=== PATIENT | female | born 1980 | race Caucasian/White ===

== ENCOUNTER 2016-06-17 17:30 | Emergency (ER) | payer BC, OTHER ==
[~2016-06-17] VITALS: Ht 160 cm; Wt 80.1 kg
[~2016-06-17 17:30] MED LIST: AMT50 PO
[2016-06-17 17:40] VITALS: TEMP 36.9; Ht 160 cm; Wt 80.1 kg
[2016-06-17] MEDS ORDERED: BCPILLS PO (17:49)
[2016-06-17] MEDS ORDERED: IBUP-1450 PO (17:50)
[2016-06-17] MEDS ORDERED: NAPR1TAB9 PO (17:50)
[2016-06-17] MEDS ORDERED: DiphenhydrAMINE HCL 50 MG/ML VIAL IV STA (17:57)
[2016-06-17] MEDS ORDERED: SODIUM CHLORIDE 0.9% 1000ML 1,000 ML IV STA (17:57)
[2016-06-17] MEDS ORDERED: KETOROLAC TROMETHAMINE 30 MG/ML VIAL IV STA (17:57)
[2016-06-17] MEDS ORDERED: PROCHLORPERAZINE 5 MG/ML 2 ML VIAL IV STA (17:57)
[2016-06-17 18:15] VITALS: O2SAT 100
--- NOTE | 2016-06-17 18:30 | DIAGNOSTIC IMAGING REPORT ---
CHEST ONE VIEW PORTABLE CLINICAL HISTORY: Pt c/o SOB dyspnea COMPARISON STUDY: No previous studies for comparison. FINDINGS: The bones soft tissues and hemidiaphragms are normal. The cardiomediastinal silhouette is normal. The lungs are clear. The pulmonary vasculature is normal. IMPRESSION: Negative chest. Electronically signed by: Tim Oneill M.D. 06/17/2016 6:29 PM Dictated Date/Time: 06/17/2016 6:29 PM
[2016-06-17 18:32] LABS: BASO % 0.3 %; BASO ABS # 0.03 K/uL (0-0.2); COMPLETE YES; IG% 0.1 %; LYMPH % 33.1 %; LYMPH ABS # 2.91 K/uL (1.2-3.4); MEAN CELL VOLUME 89.1 fL (80-100); MEAN CORPUSCULAR HEMOGLOBIN 30.2 pg (25-34); MEAN CORPUSCULAR HGB CONC 33.9 g/dl (32-36); MEAN PLATELET VOLUME 10.6 fL (7.4-10.4); MONO % 5.5 %; PLATELET COUNT 214 K/uL (130-400); WHITE BLOOD COUNT 8.79 K/uL (4.8-10.8)
[2016-06-17 18:52] LABS: ALT/SGPT 24 U/L (12-78); AST/SGOT 11 U/L (15-37); BLOOD UREA NITROGEN 15 mg/dl (7-18); BUN/CREATININE RATIO 21.7 (10-20); CALCIUM 8.5 mg/dl (8.5-10.1); CARBON DIOXIDE 26 mmol/L (21-32); CHLORIDE 107 mmol/L (98-107); CREATININE 0.69 mg/dl (0.60-1.20); GLUCOSE 99 mg/dl (70-99); POTASSIUM 3.7 mmol/L (3.5-5.1); SODIUM 141 mmol/L (136-145)
[2016-06-17 18:54] LABS: URINE APPEARANCE CLEAR (CLEAR); URINE BILIRUBIN NEG (NEG); URINE COLOR YELLOW; URINE NITRITE NEG (NEG); URINE PH 7.5 (4.5-7.5); URINE SPECIFIC GRAVITY 1.032 (1.000-1.030); UROBILINOGEN NEG (NEG)
[2016-06-17 18:55] LABS: ALKALINE PHOSPHATASE 43 U/L (45-117)
[2016-06-17 18:56] LABS: MANUAL MICROSCOPIC REQUIRED? NO; REVIEW REQ? NO
--- NOTE | 2016-06-17 19:37 | EMERGENCY ROOM VISIT NOTE ---
History First contact with patient: 17:47 Chief Complaint: FLU LIKE SX Stated Complaint: FLU LIKE SX, COULD BE MENINGITIS History of Present Illness The patient is a 36 year old female who presents to the Emergency Room with complaints of back pain. The patient is concerned that she has meningitis as a coworker tested positive for viral meningitis were she works however the patient denies severe headache or neck pain. In addition the patient has not taken anything for the pain. Patient reports she does have chronic back pain and this feels like her normal chronic back pain. Review of Systems See HPI for pertinent positives & negatives. A total of 10 systems reviewed and were otherwise negative. Social History Smoking Status: Current Every Day Smoker Alcohol Use: none Marital Status: Occupation Status: employed Current/Historical Medications Scheduled Control Pills ( Control Pills), 1 TAB PO DAILY Naproxen (Aleve), 220 MG PO UD Scheduled PRN Ibuprofen (Motrin), 600 MG PO Q6H PRN for Pain Allergies Coded Allergies: No Known Allergies (Unverified , 06/17/16) Physical Exam Vital Signs Date Time Temp Pulse Resp B/P Pulse Ox O2 Delivery O2 Flow Rate FiO2 06/17/16 19:07 67 06/17/16 18:15 100 Room Air 06/17/16 17:40 36.9 91 18 140/95 100 Room Air Physical Exam GENERAL: Patient is a healthy-appearing well-nourished female, no evidence of meningitis or encephalitis on exam HEAD: Normocephalic atraumatic EYES: Ocular movements intact pupils equal and react to light OROPHARYNX mucous membranes are moist no exudates present no erythema or edema present NECK: Supple no nuchal rigidity CHEST: Good equal expansion LUNGS: Clear and equal to auscultation CARDIAC: Normal S1 and S2 ABDOMEN: Soft nontender no guarding BACK: No CVA tenderness EXTREMITIES: No pain upon palpation normal muscle strength in all groups no clubbing cyanosis or edema NEURO: Patient is following commands is answering questions appropriately. Alert and oriented x3 Cranial Nerves 2-12 grossly intact Medical Decision & Procedures ER Provider Diagnostic Interpretation: CHEST ONE VIEW PORTABLE CLINICAL HISTORY: Pt c/o SOB dyspnea COMPARISON STUDY: No previous studies for comparison. FINDINGS: The bones soft tissues and hemidiaphragms are normal. The cardiomediastinal silhouette is normal. The lungs are clear. The pulmonary vasculature is normal. IMPRESSION: Negative chest. Electronically signed by: Tim Oneill M.D. 06/17/2016 6:29 PM Dictated Date/Time: 06/17/2016 6:29 PM Laboratory Results 06/17/16 18:20 Red Blood Count 4.60, Mean Corpuscular Volume 89.1, Mean Corpuscular Hemoglobin 30.2, Mean Corpuscular Hemoglobin Concent 33.9, Mean Platelet Volume 10.6, Neutrophils (%) (Auto) 59.0, Lymphocytes (%) (Auto) 33.1, Monocytes (%) (Auto) 5.5, Eosinophils (%) (Auto) 2.0, Basophils (%) (Auto) 0.3, Neutrophils # (Auto) 5.18, Lymphocytes # (Auto) 2.91, Monocytes # (Auto) 0.48, Eosinophils # (Auto) 0.18, Basophils # (Auto) 0.03 06/17/16 18:20 Test 06/17/16 18:11 06/17/16 18:20 Urine Color YELLOW Urine Appearance CLEAR (CLEAR) Urine pH 7.5 (4.5-7.5) Urine Specific [place] 1.032 (1.000-1.030) Urine Protein NEG (NEG) Urine Glucose (UA) NEG (NEG) Urine Ketones NEG (NEG) Urine Occult Blood NEG (NEG) Urine Nitrite NEG (NEG) Urine Bilirubin NEG (NEG) Urine Urobilinogen NEG (NEG) Urine Leukocyte Esterase NEG (NEG) White Blood Count 8.79 K/uL (4.8-10.8) Red Blood Count 4.60 M/uL (4.2-5.4) Hemoglobin 13.9 g/dL (12.0-16.0) Hematocrit 41.0 % (37-47) Mean Corpuscular Volume 89.1 fL (80-100) Mean Corpuscular Hemoglobin 30.2 pg (25-34) Mean Corpuscular Hemoglobin Concent 33.9 g/dl (32-36) Platelet Count 214 K/uL (130-400) Mean Platelet Volume 10.6 fL (7.4-10.4) Neutrophils (%) (Auto) 59.0 % Lymphocytes (%) (Auto) 33.1 % Monocytes (%) (Auto) 5.5 % Eosinophils (%) (Auto) 2.0 % Basophils (%) (Auto) 0.3 % Neutrophils # (Auto) 5.18 K/uL (1.4-6.5) Lymphocytes # (Auto) 2.91 K/uL (1.2-3.4) Monocytes # (Auto) 0.48 K/uL (0.11-0.59) Eosinophils # (Auto) 0.18 K/uL (0-0.5) Basophils # (Auto) 0.03 K/uL (0-0.2) RDW Standard Deviation 45.5 fL (36.4-46.3) RDW Coefficient of Variation 13.9 % (11.5-14.5) Immature Granulocyte % (Auto) 0.1 % Immature Granulocyte # (Auto) 0.01 K/uL (0.00-0.02) Anion Gap 8.0 mmol/L (3-11) Est Creatinine Clear Calc Drug Dose 112.9 ml/min Estimated GFR () 129.8 Estimated GFR (Non- 112.0 BUN/Creatinine Ratio 21.7 (10-20) Calcium Level 8.5 mg/dl (8.5-10.1) Total Bilirubin 0.3 mg/dl (0.2-1) Direct Bilirubin < 0.1 mg/dl (0-0.2) Aspartate Amino Transf (AST/SGOT) 11 U/L (15-37) Alanine Aminotransferase (ALT/SGPT) 24 U/L (12-78) Alkaline Phosphatase 43 U/L (45-117) Total Protein 7.0 gm/dl (6.4-8.2) Albumin 3.7 gm/dl (3.4-5.0) Influenza Type A Antigen Neg for Influ A (NEG) Influenza Type B Antigen Neg for Influ B (NEG) Medications Administered Medications (Trade) Dose Ordered Sig/Stacey Route Start Time Stop Time Status Last Admin Dose Admin Sodium Chloride (Nss 1000ml) 1,000 ml @ 999 mls/hr Q1H1M STAT IV 06/17/16 17:57 06/17/16 18:57 DC 06/17/16 18:32 999 MLS/HR Prochlorperazine Edisylate (Compazine Inj) 5 mg NOW STAT IV 06/17/16 17:57 06/17/16 17:59 DC 06/17/16 18:28 5 MG Ketorolac Tromethamine (Toradol Inj) 30 mg NOW STAT IV 06/17/16 17:57 06/17/16 17:59 DC 06/17/16 18:30 30 MG Diphenhydramine HCl (Benadryl Inj) 50 mg NOW STAT IV 06/17/16 17:57 06/17/16 18:00 DC 06/17/16 18:28 50 MG Medical Decision This is a 36-year-old female who presents emergency department over concerns that she has meningitis. The patient is able to move her head in all directions and has no neck pain in addition she is complaining of a headache but describes it as a slight headache and has not even comparable to her migraines. Based on these findings and using shared medical decision-making the decision was made not to do a lumbar puncture on this patient. I feel that the patient most likely does not have meningitis. In addition she has a normal CBC normal renal profile normal liver profile. Her flu swab is negative. An IV was established, the patient given normal saline bolus, Toradol,compazine, Benadryl. Repeat examination revealed improvement patient's symptoms. I do believe that the patient is well enough to be discharged home for follow-up with her primary care physician. Patient was in agreement with the treatment plan. Impression Primary Impression: Influenza-like symptoms Departure Information Dispostion Home / Self-Care Condition GOOD Referrals No Doctor, Assigned (PCP) Forms HOME CARE DOCUMENTATION FORM, School Instructions, Work Instructions, IMPORTANT VISIT INFORMATION Patient Instructions My [facility], ED Fever Unconf Cause, ED Fever Control Additional Instructions Take 600 mg Ibuprofen every 6 hours Take 1000 mg Tylenol every 6 hours You have been examined and treated today on an emergency basis only. This is not a substitute for, or an effort to provide, complete comprehensive medical care. It is impossible to recognize and treat all injuries or illnesses in a single emergency department visit. It is therefore important that you follow up closely with your PCP. Call as soon as possible for an appointment. Thank you for your time and consideration. I look forward to speaking with you again soon. Please don't hesitate to call us if you have any questions.
[2016-06-17 19:46] VITALS: BP 104/62; PULSE 74; O2SAT 98
[2016-06-17 22:52] LABS: INFLUENZA A PCR Neg for Influ A (NEG); INFLUENZA B PCR Neg for Influ B (NEG)
== END 2016-06-17 19:46 | disposition home or self-care (01) ==
LOC: C.EDB 17:31 → C.EDA 19:46
DX: M54.9 Dorsalgia, unspecified (principal); R51 Headache; G89.29 Other chronic pain; F17.210 Nicotine dependence, cigarettes, uncomplicated; Z79.3 Long term (current) use of hormonal contraceptives

== ENCOUNTER 2016-11-29 21:08 | Emergency (ER) | payer SELFPAY ==
[~2016-11-29] VITALS: Ht 162.6 cm; Wt 80.5 kg
[~2016-11-29 21:08] MED LIST changes: -AMT50 PO; +BCPILLS PO; +IBUP-1450 PO; +NAPR1TAB9 PO
[2016-11-29 21:16] VITALS: BP 143/82; PULSE 75; TEMP 36.6; O2SAT 98; Ht 162.6 cm; Wt 80.5 kg
--- NOTE | 2016-11-29 21:44 | DIAGNOSTIC IMAGING REPORT ---
RIGHT SHOULDER MIN 2 VIEWS ROUTINE CLINICAL HISTORY: Right shoulder pain COMPARISON: None. DISCUSSION: No fractures or dislocations are visualized. There are no visible periarticular calcifications. IMPRESSION: Unremarkable conventional radiographic evaluation of the right shoulder. Electronically signed by: Sumeet Chopra M.D. 11/29/2016 9:43 PM Dictated Date/Time: 11/29/2016 9:42 PM
[2016-11-29] MEDS ORDERED: OXYCODONE IR HOME PACK PO ONE (22:00)
--- NOTE | 2016-12-01 14:21 | EMERGENCY ROOM VISIT NOTE ---
ED Visit Note First contact with patient: 21:19 CHIEF COMPLAINT: Shoulder pain HISTORY OF PRESENT ILLNESS: This 36 year old female patient presents to the emergency department complaining of pain in the right shoulder after stumbling and catching herself 2 days ago. There is no significant limitation of motion of the arm because of the pain. The pain is moderate, constant and increases with motion of the hand and arm. The patient states the pain is dull and 7/10. The patient has taken Advil without significant relief of the pain. No previous significant previous shoulder disease or injury. No numbness or tingling. No neck and no back pain. No chest pain or shortness of breath. No abdominal pain or nausea/vomiting. No cough. REVIEW OF SYSTEMS: A 6 system review of systems was performed with positives and pertinent negatives in the HPI. ALLERGIES: No known allergies MEDICATIONS: No chronic medications PMH: Otherwise healthy SOCIAL HISTORY: Lives locally PHYSICAL EXAM: Vital Signs: Reviewed nurse's notes, vital signs stable. GENERAL : White female, in no acute distress, but appears to be in pain, well-developed , well-nourished. MUSCULOSKELETAL: There is no deformity in the contour of the right shoulder and there are no joie deformities noted. There is no sulcus sign. There is tenderness over the scapular ridge. The patient's range of motion is not significantly limited. Supraspinatus strength 5/5. There is no clavicle tenderness. No tenderness of the humerus, elbow, wrist, or hand. Transplant Nurse Practitioner strength 5/5. Radial pulse 2+. NECK: No tenderness to palpation over the cervical spine. HEART: Regular rate and rhythm without murmurs gallops or rubs. LUNGS: Clear to auscultation bilaterally without wheezes, rales or rhonchi. No accessory muscle use. No retractions. NEURO: The patient is alert and oriented to person, place, and time. Normal sensation to light and sharp touch. Capillary refill less than 2 seconds. RIGHT SHOULDER MIN 2 VIEWS ROUTINE CLINICAL HISTORY: Right shoulder pain COMPARISON: None. DISCUSSION: No fractures or dislocations are visualized. There are no visible periarticular calcifications. IMPRESSION: Unremarkable conventional radiographic evaluation of the right shoulder. EMERGENCY DEPARTMENT COURSE: Physical exam and history were performed. Nursing notes and EMR were reviewed. The patient appears to have injured her right shoulder a few days ago. X-ray was obtained and does not show evidence of acute bony injury. The patient was placed in an arm sling and will be given a home pack of oxycodone for pain control. I will give her information to follow up with orthopedics for ongoing care. She was otherwise invited back to the ER with any new, worsening, or concerning symptoms. Current/Historical Medications Scheduled PRN Ibuprofen (Motrin), 600 MG PO Q6H PRN for Pain Allergies Coded Allergies: No Known Allergies (Unverified , 11/29/16) Vital Signs Date Time Temp Pulse Resp B/P (MAP) Pulse Ox O2 Delivery O2 Flow Rate FiO2 11/29/16 21:16 36.6 75 18 143/82 98 Room Air Medications Administered Medications (Trade) Dose Ordered Sig/Stacey Route Start Time Stop Time Status Last Admin Dose Admin Oxycodone HCl (Roxicodone Immediate Rel 5MG Home Pack) 1 homepack UD ONCE PO 11/29/16 22:00 11/29/16 22:01 DC 11/29/16 22:00 1 HOMEPACK Departure Information Impression Primary Impression: Injury of right shoulder Dispostion Home / Self-Care Condition GOOD Referrals Frank Anand D.O. Forms HOME CARE DOCUMENTATION FORM, IMPORTANT VISIT INFORMATION Patient Instructions My [facility] Additional Instructions You were seen and evaluated today on an emergency basis only. This is not a substitute for, or an effort to provide, complete comprehensive medical care. It is not possible to recognize and treat all injuries or illnesses in a single emergency department visit. For this reason it is recommended that you followup with your primary care physician or with orthopedics, Dr. Anand's office, if symptoms persist over the next week. Wear your arm sling for comfort. For baseline pain relief you may alternate ibuprofen and acetaminophen every 4 hours for pain control. Take 600 mg ibuprofen (Advil) and then 4 hours later take 1000 mg acetaminophen (Tylenol). Do not take more than 3000 mg acetaminophen in a single day. Oxycodone (OxyIR) 5mg (homepack): Take ONE pill every SIX hours for breakthrough pain. Avoid alcohol, operating machinery or dangerous equipment, working on ladders or roofs, DRIVING, or situations where being under the influence may be dangerous. It is recommended to use an [id number] stool softener such as Colace, 100mg twice daily while taking this medication to avoid constipation. You are welcome to return to the emergency department anytime with new, worsening, or concerning symptoms.
== END 2016-11-29 22:01 | disposition home or self-care (01) ==
LOC: C.EDB 21:09 → C.EDD 22:01
DX: S49.91XA Unspecified injury of right shoulder and upper arm, initial encounter (principal); W18.40XA Slipping, tripping and stumbling without falling, unspecified, initial encounter

== ENCOUNTER 2016-12-10 18:59 | Emergency (ER) | payer OTHER ==
[~2016-12-10] VITALS: Ht 162.6 cm; Wt 78.2 kg
[~2016-12-10 18:59] MED LIST changes: -BCPILLS PO; -NAPR1TAB9 PO
[2016-12-10 19:05] VITALS: TEMP 36.9; Ht 162.6 cm; Wt 78.2 kg
[2016-12-10] MEDS ORDERED: IBUP-103 PO (19:19)
[2016-12-10] MEDS ORDERED: CYCL5TAB PO (19:45)
[2016-12-10] MEDS ORDERED: OXYC1TAB3 PO (19:45)
[2016-12-10] MEDS ORDERED: OXYCODONE IR HOME PACK PO STA (19:46)
[2016-12-10] MEDS ORDERED: FLEXERIL HOME PACK 10 MG VIAL PO STA (19:46)
--- NOTE | 2016-12-10 19:46 | EMERGENCY ROOM VISIT NOTE ---
ED Visit Note First contact with patient: 19:37 CHIEF COMPLAINT: Low back pain HISTORY OF PRESENT ILLNESS: This 36-year-old female patient presents to the emergency department via private vehicle complaining of pain in the low back which began when she got out of bed today. 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 The pain was gradual in onset, is now constant and worse with movement. The patient notes the pain as dull and a 8/10. The patient denies any loss of control of their bowel or bladder functions. There has been no leg numbness or weakness, and no change in sensation. No nausea or vomiting or abdominal pain. No chest pain or shortness of breath. She denies any chance of . There are no urinary symptoms. REVIEW OF SYSTEMS: A review of systems was performed with positives and pertinent negatives listed in the history of present illness. All other systems were reviewed and are negative. ALLERGIES: None MEDICATIONS: As noted below PMH: No pertinent identified. SOCIAL HISTORY: Patient lives and works locally. PHYSICAL EXAM: VITALS: Vitals are noted on the nurse's note and reviewed by myself. Vital signs stable. GENERAL: 36-year-old female, in no acute distress, nondiaphoretic, well- developed well-nourished. SKIN: The skin was without rashes, erythema, edema, or bruising. NECK: No cervical spine tenderness. No paraspinous muscle tenderness. HEART: Regular rate and rhythm without murmurs gallops or rubs. LUNGS: Clear to auscultation bilaterally without wheezes, rales or rhonchi. ABDOMEN: Soft, nontender, without masses or organomegaly. MUSCULOSKELETAL: No muscle atrophy, erythema, or edema noted of the back. There is tenderness over the paraspinous musculature of the lumbar spine as well as inferior thoracic spine. Minimal to no spinous processes tenderness. The patient is slow to move around with maximum tenderness with palpation of the right paraspinous musculature of the lumbar spine. NEURO: Normal sensation to light and sharp touch. Deep tendon reflexes 2+ in the lower extremities. Strength 5/5 and equal in the bilateral lower extremities. EMERGENCY DEPARTMENT COURSE: Patient was seen and evaluated as above. Examination is consistent with that of a lumbar strain. No evidence of abdominal etiology. No evidence of urinary symptoms. No evidence of cauda equina syndrome. She is afebrile. She'll be treated conservatively for a lumbar strain. She will be given Flexeril as well as oxycodone immediate release. She is to follow with her family doctor that she notes that she will obtain. She is to return with worsening. She was educated upon management, educated upon worrisome symptoms in which to return, had questions upon discharge, and was discharged home in good condition. In evaluation treatment this patient following differential diagnoses were entertained: Lumbar strain, fracture, dislocation, cauda equina syndrome, abdominal etiology, among others. In the treatment of this patient controlled medication was utilized and therefore the [facility], Prescription Drug Monitoring Program website was utilized to look up this patient. No concerns were identified that would prohibit or alter my treatment decision. Current/Historical Medications Scheduled Cyclobenzaprine Hcl (Flexeril), 5 MG PO TID Scheduled PRN Ibuprofen Tab (Advil), 400-600 MG PO Q6H PRN for Pain Oxycodone Ir (Roxicodone Ir), 1-2 TAB PO Q4H PRN for Pain Allergies Coded Allergies: No Known Allergies (Unverified , 11/29/16) Vital Signs Date Time Temp Pulse Resp B/P (MAP) Pulse Ox O2 Delivery O2 Flow Rate FiO2 12/10/16 20:20 75 18 125/89 99 12/10/16 19:05 36.9 97 18 129/90 99 Room Air Medications Administered Medications (Trade) Dose Ordered Sig/Stacey Route Start Time Stop Time Status Last Admin Dose Admin Oxycodone HCl (Roxicodone Immediate Rel 5MG Home Pack) 1 homepack UD STAT PO 12/10/16 19:46 12/10/16 19:47 DC 12/10/16 20:17 1 HOMEPACK Cyclobenzaprine HCl (FLEXERIL 10MG Home Pack) 1 homepack UD STAT PO 12/10/16 19:46 12/10/16 19:47 DC 12/10/16 20:17 1 HOMEPACK Departure Information Impression Primary Impression: Strain of lumbar region Dispostion Home / Self-Care Condition GOOD Prescriptions Oxycodone Ir (Roxicodone Ir) 5 Mg Tab 1-2 TAB PO Q4H Y for Pain, #15 TAB For Initial Treatment Prov: Marck CasperJOSE 12/10/16 Cyclobenzaprine Hcl (FLEXERIL) 5 Mg Tab 5 MG PO TID for 5 Days, #15 TAB PRN Prov: Marck CasperJOSE 12/10/16 Referrals No Doctor, Assigned (PCP) Patient Instructions My [facility] Additional Instructions You have been treated in the Emergency Department for Back Pain. You have been prescribed Oxy IR to be used for pain control. This is a narcotic medication. You cannot drive or consume alcohol while on this medicine. This medicine should only be used for pain that cannot be controlled with over-the- counter pain medicines. You have been prescribed Flexeril (cyclobenzaprine) 1-2 tabs orally, three times per day. Do NOT exceed 30 mg (6 tabs) per day. Take your first dose at bedtime as it can make you drowsy. Always take all medications as prescribed. For pain control, you can use the following [id number] medicines (if >12 yo): - Regular strength (325mg/tab) Tylenol (acetaminophen) 2 tabs every 4-6 hours as needed. Do not exceed 12 tablets in a 24 hour period. Avoid taking more than 3 grams (3000 mg) of Tylenol per day. This includes any other sources of acetaminophen you may take on a regular basis. - Regular strength (200 mg/tab) Advil (ibuprofen) 1-2 tabs every 4-6 hours as needed. Do not exceed a dose of 3200 mg per day. If this is an acute injury, ice can be applied to the area of pain for the first 3 days to help decrease pain and inflammation. After the first 3 days, a heating pad can be used over the area for continued soothing relief. You should schedule a follow-up appointment in 2-3 days with your Primary Care Provider for further evaluation and treatment of your back pain. Return to the Emergency Department if your current symptoms worsen despite treatment course outlined above, or if you develop any of the following symptoms : intractable pain despite aforementioned treatment course, loss of control of your bowel or bladder, numbness or tingling in your groin, or development of a fever. Please return with any new/concerning symptoms.
[2016-12-10 20:20] VITALS: BP 125/89; PULSE 75; O2SAT 99
== END 2016-12-10 20:20 | disposition home or self-care (01) ==
LOC: C.EDB 18:59 → C.EDD 20:20
DX: S39.012A Strain of muscle, fascia and tendon of lower back, initial encounter (principal); X50.1XXA Overexertion from prolonged static or awkward postures, initial encounter; Y92.89 Other specified places as the place of occurrence of the external cause

== ENCOUNTER 2016-12-26 23:15 | Emergency (ER) | payer SELFPAY ==
[~2016-12-26] VITALS: Ht 162.6 cm; Wt 79.1 kg
[~2016-12-26 23:15] MED LIST changes: +IBUP-103 PO; -IBUP-1450 PO; +OXYC1TAB3 PO
[2016-12-26 23:31] VITALS: Ht 162.6 cm; Wt 79.1 kg
[2016-12-27] MEDS ORDERED: KETOROLAC TROMETHAMINE 60 MG/2 ML VIAL IM STA (00:08)
[2016-12-27] MEDS ORDERED: CYCL10TA6 PO (01:22)
[2016-12-27] MEDS ORDERED: METH4PAK PO (01:22)
[2016-12-27 01:50] VITALS: BP 125/94; PULSE 97; TEMP 36.6; O2SAT 99
--- NOTE | 2016-12-27 04:07 | EMERGENCY ROOM VISIT NOTE ---
History Report prepared by Janet: Alva Walker Under the Supervision of: Dr. Alesia Grigsby D.O. First contact with patient: 23:36 Chief Complaint: BACK PAIN Stated Complaint: BACK PAIN History of Present Illness The patient is a 36 year old female who presents to the Emergency Room with complaints of worsening back pain starting two days ago. The patient states that the pain is in the middle to top of her back. 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 The patient notes that she has been icing it, heating it, taking Tylenol, and taking Aleve with little relief. She reports that she does have an appointment with a doctor at [facility], but notes that he won't see her till her insurance comes through towards the end of the month. She notes that she has chronic back pain. She notes that she has only ever had x-rays done on her spine. The patient notes that she was given muscle relaxant and a narcotic. She reports that they helped. The patient denies weakness in her legs, seeing anyone since her last ED visit on December 10, urinary symptoms, and issues with her bowel movements. She notes that she has been working half days because of it. She currently rates her pain as a 9/10 in severity. Source of History: patient Onset: two days ago Position: back Symptom Intensity: 9/10 Timing: worsening Modifying Factors (Relieving): tylenol, narcotics, ice, heat, other (Aleve, muscle relaxor) Associated Symptoms: No urinary symptoms, No weakness Note: The patient denies issues with her bowel movements. Review of Systems See HPI for pertinent positives & negatives. A total of 10 systems reviewed and were otherwise negative. Past Medical & Surgical Medical Problems: (1) Hx of blood clots Family History Cancer Diabetes mellitus Gallbladder disease Heart disease Hypertension Social History Smoking Status: Current Some Day Smoker Alcohol Use: occasionally Marital Status: in relationship Housing Status: lives with family Occupation Status: employed Current/Historical Medications Scheduled Cyclobenzaprine Hcl (Flexeril), 10 MG PO TID Methylprednisolone (Medrol Dosepak), 1 PKT PO UD Scheduled PRN Ibuprofen Tab (Advil), 400-600 MG PO Q6H PRN for Pain Oxycodone Ir (Roxicodone Ir), 1-2 TAB PO Q4H PRN for Pain Allergies Coded Allergies: No Known Allergies (Unverified , 11/29/16) Physical Exam Vital Signs Date Time Temp Pulse Resp B/P (MAP) Pulse Ox O2 Delivery O2 Flow Rate FiO2 12/27/16 01:50 36.6 97 18 125/94 99 12/26/16 23:31 36.6 97 18 125/94 99 Room Air Physical Exam HEENT: Head - normocephalic and atraumatic Pupils are equal, round, and reactive to light. Extraocular eye muscles are intact, and sclera are anicteric. Nose - moist nasal mucosa without discharge. Mouth - moist buccal mucosa. Oropharynx is nonerythematous and there is no tonsillar exudate or edema noted. Neck: Supple; no JVD, nuchal rigidity, cervical lymphadenopathy. Heart: Regular rate and rhythm. There is a normal S1 and S2 with no murmurs, clicks, or gallops appreciated. Lungs: Clear to auscultation bilaterally with no wheezes, rales, or rhonchi. Abdomen: Soft, completely nontender, nondistended, with good bowel sounds. There are no palpable pulsatile masses or hepatosplenomegaly. There is no guarding, rigidity, or rebound noted. Back: Pain to palpation over mid thoracic spine and significant muscle spasm over paraspinous muscle. There does not seem to be any involvement of the lumbar spine. Extremities: No evidence of cyanosis, clubbing, or edema. There are easily palpable peripheral pulses. Skin: warm and dry with good turgor and no rashes. Medical Decision & Procedures Medications Administered Medications (Trade) Dose Ordered Sig/Stacey Route Start Time Stop Time Status Last Admin Dose Admin Ketorolac Tromethamine (Toradol Inj) 60 mg NOW STAT IM 12/27/16 00:08 12/27/16 00:09 DC 12/27/16 00:22 60 MG Procedure 0008: Ordered Toradol Inj 60 mg IM. ED Course 2358: Past medical records reviewed. The patient was evaluated in room C12. A complete history and physical exam was performed. 0008: Ordered Toradol Inj 60 mg IM. 0117: Upon reevaluation, the patient is feeling much better. I discussed findings and results with her. She verbalized agreement of the treatment plan. The patient was discharged home. Medical Decision The patient is a 36 year old female who presents to the Emergency Room with complaints of worsening back pain starting two days ago. Differential diagnoses include thoracic strain, thoracic disc herniation. This is a 36 year old female patient presents to the emergency department with mid back pain that seems to be a chronic issue for her. She has been seen here in the emergency department for this in the past. Recently, she was given a prescription for Flexeril and OxyIR. She does not have a primary care physician at this time because she does not have insurance. She plans to have those in place in the next couple of weeks. The patient explains that she's had plain films of her mid back before which were unremarkable. She has also seen a chiropractor. I suggested that the patient rest and apply heat to her back. She was prescribed a Medrol Dosepak and some additional Flexeril to use for the discomfort. Prior to discharge tonight, the patient felt much better after receiving IM Toradol. The patient's presentation seems consistent with an acute thoracic strain. 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 I encouraged her not lift anything greater than 5 pounds for the next couple of days. Impression Primary Impression: Thoracic back pain Scribe Attestation The scribe's documentation has been prepared under my direction and personally reviewed by me in its entirety. I confirm that the note above accurately reflects all work, treatment, procedures, and medical decision making performed by me. Departure Information Dispostion Home / Self-Care Prescriptions Cyclobenzaprine Hcl (FLEXERIL) 10 Mg Tab 10 MG PO TID, #21 TAB Prov: Alesia Grigsby D.OAlfredo 12/27/16 Methylprednisolone (MEDROL DOSEPAK) 4 Mg Nahid 1 PKT PO UD for 6 Days, #1 PKT Prov: Alesia Grigsby D.O. 12/27/16 Referrals No Doctor, Assigned (PCP) Forms HOME CARE DOCUMENTATION FORM, IMPORTANT VISIT INFORMATION Patient Instructions My [facility] Additional Instructions Rest. Do not lift greater than 5 lbs Apply heat to the back tylenol for pain Medrol dose pack as directed Flexeril - every 8 hours as needed.(You cannot drive or work while taking this.) Problem Qualifiers Primary Impression: Thoracic back pain Chronicity: chronic Back pain laterality: bilateral Qualified Codes: M54.6 - Pain in thoracic spine; G89.29 - Other chronic pain
== END 2016-12-27 01:50 | disposition home or self-care (01) ==
LOC: C.EDB 23:16 → C.EDC 12-27 01:50
DX: M54.6 Pain in thoracic spine (principal); G89.29 Other chronic pain; F17.200 Nicotine dependence, unspecified, uncomplicated; Z82.49 Family history of ischemic heart disease and other diseases of the circulatory system; Z83.3 Family history of diabetes mellitus

== ENCOUNTER → 2017-02-26 | Outpatient (CLI) | payer OTHER ==
[2017-02-26 16:49] LABS: URINE APPEARANCE CLEAR (CLEAR); URINE BILIRUBIN NEG (NEG); URINE COLOR YELLOW; URINE NITRITE NEG (NEG); URINE PH 6.5 (4.5-7.5); URINE SPECIFIC GRAVITY 1.015 (1.000-1.030); UROBILINOGEN NEG (NEG)
[2017-02-26 16:53] LABS: MANUAL MICROSCOPIC REQUIRED? NO; REVIEW REQ? NO
[2017-02-26 17:09] LABS: BASO % 0.3 %; BASO ABS # 0.04 K/uL (0-0.2); COMPLETE YES; EOS % 1.3 %; HEMATOCRIT 39.3 % (37-47); IG% 0.3 %; LYMPH % 24.2 %; LYMPH ABS # 3.06 K/uL (1.2-3.4); MEAN CELL VOLUME 90.1 fL (80-100); MEAN CORPUSCULAR HEMOGLOBIN 30.5 pg (25-34); MEAN CORPUSCULAR HGB CONC 33.8 g/dl (32-36); MEAN PLATELET VOLUME 9.9 fL (7.4-10.4); MONO % 4.7 %; NEUT % 69.2 %; PLATELET COUNT 240 K/uL (130-400); RED BLOOD COUNT 4.36 M/uL (4.2-5.4); WHITE BLOOD COUNT 12.62 K/uL (4.8-10.8)
[2017-03-03 02:35] LABS: CHLAMYDIA TRACH RNA*** NOT DETECTED (NOT DETECTED); GC (NEIS GONORRHOEAE)RNA** NOT DETECTED (NOT DETECTED)
== END | disposition home or self-care (01) ==
LOC: C.LAB1850 16:09
PROVIDERS: ATTEND Obstetrics & Gynecology
DX: O09.511 Supervision of elderly primigravida, first trimester (principal); Z3A.00 Weeks of gestation of pregnancy not specified

== ENCOUNTER → 2017-04-17 | Outpatient (CLI) | payer OTHER | END | disposition home or self-care (01) | LOC: C.LAB1850 13:52 | PROVIDERS: ATTEND Obstetrics & Gynecology | DX: O09.512 Supervision of elderly primigravida, second trimester (principal); Z3A.00 Weeks of gestation of pregnancy not specified ==

== ENCOUNTER → 2017-05-01 | Outpatient (CLI) | payer OTHER | END | disposition home or self-care (01) | LOC: C.LAB1850 08:18 | PROVIDERS: ATTEND Obstetrics & Gynecology | DX: O28.1 Abnormal biochemical finding on antenatal screening of mother (principal); Z3A.00 Weeks of gestation of pregnancy not specified ==

== ENCOUNTER 2017-10-29 16:51 | Emergency (ER) | payer OTHER ==
[~2017-10-29] VITALS: Ht 162.6 cm; Wt 94.8 kg
[~2017-10-29 16:51] MED LIST changes: -OXYC1TAB3 PO; +PRENTAB26 PO; +SKL800 PO
[2017-10-29 17:04] VITALS: Ht 162.6 cm; Wt 94.8 kg
--- NOTE | 2017-10-29 18:19 | DIAGNOSTIC IMAGING REPORT ---
PA CHEST WITH ABDOMINAL SERIES CLINICAL HISTORY: Constipation. Generalized abdominal pain. FINDINGS: A PA chest radiograph is compared to study dated 06/17/2016. The cardiomediastinal silhouette is unremarkable. The lungs and pleural spaces are clear. No pneumothorax is seen. The bony thorax is grossly intact. Supine and erect abdominal radiographs are obtained. No prior studies are available for comparison at the time of dictation. There is a nonobstructed abdominal bowel gas pattern. Moderate to severe constipation is observed. There is rectosigmoid fecal impaction. No evidence of intraperitoneal free air is seen. There are no abnormal abdominal calcifications. The lumbosacral spine and bony pelvis appear intact. IMPRESSION: 1. No active disease in the chest. 2. There is rectosigmoid fecal impaction with moderate to severe constipation. No bowel obstruction is seen. Electronically signed by: Osvaldo Bee M.D. 10/29/2017 6:18 PM Dictated Date/Time: 10/29/2017 6:17 PM
[2017-10-29 19:56] VITALS: BP 135/88; PULSE 100; TEMP 36.9; O2SAT 99
--- NOTE | 2017-10-29 21:10 | EMERGENCY ROOM VISIT NOTE ---
History First contact with patient: 17:28 Chief Complaint: CONSTIPATION Stated Complaint: HAVENT HAD BOWEL MOVEMENT IN DAYS Nursing Triage Summary: patient reports no BM for few weeks,patient reports 2 weeks,patient states "it' s right there" History of Present Illness The patient is a 37 year old female who presents to the Emergency Room with complaints of abdominal pain after not having a bowel movement for the past 2 weeks. The patient reports that it feels like she is impacted. She did try to manually disimpact herself without success. She also tried a fleets enema and suppository without relief. She has had some nausea and vomiting, and generalized abdominal cramping. She denies fevers or chills. The patient denies any prior history of obstipation or impaction. She does report a history of constipation. She rates her discomfort a 10 out of 10. Review of Systems 10 system review was performed and was negative except for pertinent positives and negatives as indicated in history of present illness Past Medical/Surgical History Medical Problems: (1) Gestational hypertension (2) Hx of blood clots Family History Cancer Diabetes mellitus Gallbladder disease Heart disease Hypertension Social History Smoking Status: Current Some Day Smoker Alcohol Use: occasionally Marital Status: in relationship Housing Status: lives with family Occupation Status: employed Current/Historical Medications Scheduled Metaxalone (Skelaxin), 1 TAB PO TID Multivit/Min/Iron/Fol Ac/Pren ( Vitamin), 1 TAB PO DAILY Scheduled PRN Ibuprofen Tab (Advil), 400-600 MG PO Q6H PRN for Pain Physical Exam Vital Signs Date Time Temp Pulse Resp B/P (MAP) Pulse Ox O2 Delivery O2 Flow Rate FiO2 10/29/17 19:56 36.9 100 19 135/88 99 10/29/17 17:04 36.9 100 18 140/95 99 Room Air Physical Exam CONSTITUTIONAL: Healthy and well nourished. Alert and oriented X 3 with positive affect. Patient does not appear in any acute distress. HEENT: Normocephalic, atraumatic. Pupils equal, round and reactive. NECK: Full active range of motion without discomfort. RESPIRATORY: Clear to auscultation bilaterally with no wheezing, crackles, rhonchi or stridor. CARDIOVASCULAR: Regular rate and rhythm with no murmurs, rubs or gallops. GASTROINTESTINAL: Bowel sounds present in all quadrants. Abdomen is soft and nontender to palpation without rigidity, guarding or rebound. Negative McBurney 's point tenderness. Negative CVA tenderness. No left lower quadrant tenderness to palpation. With a female nurse mfts present, digital rectal exam was performed to show firm stool in the rectal vault; however, I was unable to reach far enough to perform disimpaction. MUSCULOSKELETAL: Full range of motion of all joints without discomfort. INTEGUMENTARY: No rash or other significant dermatologic conditions noted. NEUROLOGIC: No focal neurologic deficits noted. Medical Decision & Procedures ER Provider Diagnostic Interpretation: My interpretation of an abdomen obstruction series with a PA chest view shows evidence for moderate to severe constipation with rectosigmoid fecal impaction. No other obstructive pattern or free air noted. Radiologist report is as follows: PA CHEST WITH ABDOMINAL SERIES CLINICAL HISTORY: Constipation. Generalized abdominal pain. FINDINGS: A PA chest radiograph is compared to study dated 06/17/2016. The cardiomediastinal silhouette is unremarkable. The lungs and pleural spaces are clear. No pneumothorax is seen. The bony thorax is grossly intact. Supine and erect abdominal radiographs are obtained. No prior studies are available for comparison at the time of dictation. There is a nonobstructed abdominal bowel gas pattern. Moderate to severe constipation is observed. There is rectosigmoid fecal impaction. No evidence of intraperitoneal free air is seen. There are no abnormal abdominal calcifications. The lumbosacral spine and bony pelvis appear intact. IMPRESSION: 1. No active disease in the chest. 2. There is rectosigmoid fecal impaction with moderate to severe constipation. No bowel obstruction is seen. ED Course Patient history and physical exam were performed. Nurse's notes were reviewed. Vital signs were reviewed, showing a blood pressure 140/95. The patient does not appear in any acute distress on exam. Abdomen obstruction series with a PA chest view shows severe constipation with rectosigmoid impaction. As indicated in the previous PE section, I was unable to reach the stool to perform disimpaction. At this point, a milk and molasses enema was performed with good results. After doing so, the patient denied any pain. I did recommend also performing a magnesium citrate to purge, and take MiraLAX daily to help prevent constipation. A constipation handout was provided. She was encouraged to follow-up with her PCP as needed for further constipation management. Return to the emergency department for any worsening abdominal pain, vomiting, fever or other concerns. The patient was happy with plan of care, and voiced understanding of all discharge instructions. Medical Decision I do not suspect a surgical abdomen. The patient is status post appendicitis. The patient had no pain after her enema was performed. X-rays do not show any evidence for free air or obstruction. I do not suspect intrapelvic etiology. Blood Pressure Screening Patient's blood pressure: Elevated blood pressure Blood pressure disposition: Elevated BP felt to be situational, Did not require urgent referral Impression Primary Impression: Impacted stool in intestine Additional Impression: Constipation Departure Information Referrals No Doctor, Assigned (PCP) Patient Instructions My [facility] Problem Qualifiers Additional Impression: Constipation Constipation type: unspecified constipation type Qualified Codes: K59.00 - Constipation, unspecified
== END 2017-10-29 19:57 | disposition home or self-care (01) ==
LOC: C.EDB 16:53
DX: K56.41 Fecal impaction (principal); F17.200 Nicotine dependence, unspecified, uncomplicated; Z83.79 Family history of other diseases of the digestive system; R03.0 Elevated blood-pressure reading, without diagnosis of hypertension